=== PATIENT | female | born 1985 | race Caucasian/White ===

== ENCOUNTER 2017-02-01 19:44 | Emergency (ER) | payer BC, OTHER ==
[~2017-02-01] VITALS: Ht 172.7 cm; Wt 120.2 kg
[2017-02-01 20:05] VITALS: BP 144/80
[2017-02-01] MEDS ORDERED: MECLIZINE HCL 12.5 MG TABLET. PO ONE (20:15)
[2017-02-01] MEDS ORDERED: MECL25TA3 PO (20:55)
--- NOTE | 2017-02-01 21:04 | PHYS DOC ---
Adult General Chief Complaint Chief Complaint: DIZZY/LIGHT HEADED HPI HPI This is a pleasant 31-year-old female presenting to the emergency department today with vertigo. It is worse when she stands up. She describes the room is spinning. She denies having symptoms like this before. She denies being . She denies pain shortness of breath. He denies fevers chills headache neck stiffness confusion vision changes. Review of systems is negative for focal numbness weakness or tingling. She denies difficulty speaking or difficulty walking. All other review of systems is negative unless otherwise noted in history of present illness. ED course: 31-year-old female presenting to the emergency department today with vertigo. Upon arrival the patient is afebrile with a normal heart rate. Pertinent physical examination findings show normal neurologic exam as below. Patient has lateral rotating nystagmus. pts history and examination suggestive of benign peripheral vertigo. Patient was discharged home with oral meclizine to follow-up with her doctor in the next 2-3 days. The patient was then discharged home in stable condition to follow up with their primary care physician over the next 2-3 days. They were to return if their symptoms worsened or if they were concerned for any reason. [id number] discharge instructions and return precautions were given. Patient's questions were answered to their satisfaction. Patient is comfortable plan. Review of Systems Review of Systems SEE ABOVE. Current Medications Current Medications Current Medications Medications (Trade) Dose Ordered Sig/Praveen Start Time Stop Time Status Last Admin Dose Admin Meclizine HCl (Antivert) 25 mg 1X ONCE 02/01/17 20:15 02/01/17 20:20 DC 02/01/17 20:47 25 MG Allergies Allergies Allergies Coded Allergies Type Severity Reaction Last Updated Verified cetirizine HCl Allergy Intermediate 03/16/13 Yes Physical Exam Physical Exam SEE ABOVE Constitutional: Well developed, well nourished, no acute distress, non-toxic appearance. HENT: Normocephalic, atraumatic, bilateral external ears normal, oropharynx moist, no oral exudates, nose normal. Eyes: PERRLA, EOMI, conjunctiva normal, no discharge. [] Neck: Normal range of motion, no tenderness, supple, no stridor. Cardiovascular:Heart rate regular rhythm, no murmur Lungs & Thorax: Bilateral breath sounds clear to auscultation Abdomen: Bowel sounds normal, soft, no tenderness, no masses, no pulsatile masses. Skin: Warm, dry, no erythema, no rash. Back: No tenderness, no CVA tenderness. Extremities: No tenderness, no cyanosis, no clubbing, ROM intact, no edema. [] Neurologic: Mental status: Awake oriented and alert x3 Cranial nerves: Extraocular movements intact, eyebrows masha bilaterally smile symmetric, uvula elevation, shoulder shrug intact, tongue protrusion normal. Patient has lateral rotatory nystagmus upon lateral gaze to the left. There is no horizontal nystagmus. DTRs: 2+ Sensation: equal and normal in all extremities Strength: 5/5 in upper and lower extremities bilaterally Psychologic: Affect normal, judgement normal, mood normal. EKG EKG [] Radiology/Procedures Radiology/Procedures [] Course & Med Decision Making Course & Med Decision Making Pertinent Labs and Imaging studies reviewed. (See chart for details) [] Dragon Disclaimer Dragon Disclaimer This electronic medical record was generated, in whole or in part, using a voice recognition dictation system. Departure Departure Impression: Primary Impression: Peripheral vertigo Disposition: 01 HOME, SELF-CARE Condition: STABLE Referrals: SAM DAVIDSON MD (PCP) Patient Instructions: Vertigo, [id number] Additional Instructions: Thank you for allowing us to participate in your care today. Followup with your primary care physician in 3 days if your symptoms do not improve. Call your Primary Doctor tomorrow and inform them of your visit today. If you do not have a primary care provider you can ask for a list of our primary care providers. Return to the emergency department you have any new or concerning findings. This should be evaluated by the primary care physician and any necessary consulting services for continued management within a few days after discharge. Return to emergency room if you have any new or concerning symptoms including but not limited to fever, chills, nausea, vomiting, intractable pain, any new rashes, chest pain, shortness of air, uncontrolled bleeding, difficulty breathing, and/or vision loss. Scripts Meclizine Hcl (MECLIZINE HCL) 25 Mg Tablet 25 MG PO PRN Q24HRS Y for DIZZINESS, #10 TAB Prov: ELY MONK MD 02/01/17 ELY MONK MD Feb 01, 2017 21:04
== END 2017-02-01 21:21 | disposition home or self-care (01) ==
LOC: ER 19:44
DX: H81.392 Other peripheral vertigo, left ear (principal); Z88.8 Allergy status to other drugs, medicaments and biological substances
CPT/HCPCS: 81025; 99282; J8597